=== PATIENT | female | born 1955 | race Caucasian/White ===

== ENCOUNTER → 2021-09-28 | Outpatient (CLI) | payer MEDICARE ==
[~2021-09-28] MED LIST: ATORVASTATIN CA10 M1 PO; GLUCOPHAGE500 MG PO; GOOD SENSE ASP325 MG PO; Humalog SQ; LAMOTRIGINE100 MG PO; LEVOTHYROXINE100 MC1 PO; LOSARTAN POTAS100 M1 PO; METOPROLOL SUCC25 M2 PO; MYRBETRIQ50 M1 PO; PERCOCET 5-3251 EACH PO; REQUIP2 MG PO; SLOW RELEASE I159 MG PO; THERA TABLET400 MCG PO; VITAMIN D3125 MC1 PO; VITAMIN E180 M1 PO
== END | disposition home or self-care (01) ==
LOC: ORTHO 10:41
PROVIDERS: ATTEND Orthopaedic Surgery
DX: S82.141D Displaced bicondylar fracture of right tibia, subsequent encounter for closed fracture with routine healing (principal); M11.20 Other chondrocalcinosis, unspecified site; X58.XXXD Exposure to other specified factors, subsequent encounter

== ENCOUNTER → 2021-10-12 | Outpatient (CLI) | payer MEDICARE | END | disposition home or self-care (01) | LOC: ORTHO 02:22 | PROVIDERS: ATTEND Orthopaedic Surgery | DX: S82.141D Displaced bicondylar fracture of right tibia, subsequent encounter for closed fracture with routine healing (principal); M80.061D Age-related osteoporosis with current pathological fracture, right lower leg, subsequent encounter for fracture with routine healing; X58.XXXD Exposure to other specified factors, subsequent encounter ==